=== PATIENT | female | born 2005 | race Caucasian/White ===

== ENCOUNTER → 2025-09-12 09:18 | Outpatient (REF) | payer OTHER, SELFPAY ==
[2025-09-12 10:48] LABS: Hematocrit 40.9 % (37.0-47.0); Hemoglobin 13.4 g/dL (12.0-16.0); Mean Corp Hgb Conc. 32.8 g/dL (33.0-37.0); Mean Corpuscular Volume 97.8 fL (81.0-99.0); Nucleated Red Blood Cells % 0 %; Platelet Count 239 10^3/uL (130-400); Red Cell Dist. Width 12.3 % (11.5-14.5)
[2025-09-12 11:41] LABS: TSH 1.86 uIU/ml (0.47-4.68)
== END ==
LOC: REG 09:18
DX: N94.6 Dysmenorrhea, unspecified (principal)
CPT/HCPCS: 36415; 84443; 85025